=== PATIENT | female | born 1980 | race Two or more races ===

== ENCOUNTER 2017-06-05 09:30 | Emergency (ER) | payer OTHER ==
[~2017-06-05 09:30] MED LIST: FOLIC ACID1 MG PO; IRON1TAB4 PO; ORTHO TRI-7 DAYSX 3 PO; TUSSICAPS PO; ZITHROMAX500 MG PO
[2017-06-05] MEDS ORDERED: MEDROLPACK PO (13:25)
[2017-06-05] MEDS ORDERED: DICLOFENAC SODI50 MG PO (13:25)
[2017-06-05] MEDS ORDERED: NORFLEX100MG PO (13:25)
== END 2017-06-06 08:44 | disposition home or self-care (01) ==
LOC: ER 09:30
DX: M54.5 Low back pain (principal)

== ENCOUNTER 2017-10-16 14:30 | Emergency (ER) | payer OTHER ==
[~2017-10-16] VITALS: Ht 160 cm; Wt 122.5 kg
[~2017-10-16 14:30] MED LIST changes: +DICLOFENAC SODI50 MG PO; +MEDROLPACK PO; +NORFLEX100MG PO
[2017-10-16] MEDS ORDERED: MEDROLPACK PO (20:30)
[2017-10-16] MEDS ORDERED: DICLOFENAC POTA50 MG PO (20:30)
[2017-10-16] MEDS ORDERED: DIAZEPAM10 MG PO (20:30)
== END 2017-10-16 20:32 | disposition home or self-care (01) ==
LOC: ER 14:30
DX: M54.5 Low back pain (principal)

== ENCOUNTER 2019-04-18 08:04 | Emergency (ER) | payer OTHER ==
[~2019-04-18] VITALS: Ht 160 cm; Wt 93.9 kg
[~2019-04-18 08:04] MED LIST changes: +DIAZEPAM10 MG PO; +DICLOFENAC POTA50 MG PO
== END 2019-04-18 14:21 | disposition home or self-care (01) ==
LOC: ER 08:04
DX: M54.42 Lumbago with sciatica, left side (principal)